=== PATIENT | male | born 1960 | race Caucasian/White ===

== ENCOUNTER 2018-12-18 23:57 | Emergency (ER) | payer SELFPAY ==
[~2018-12-18] VITALS: Ht 185.4 cm; Wt 108.2 kg
[2018-12-19] MEDS ORDERED: HYDR25TA PO (00:09)
[2018-12-19] MEDS ORDERED: LOSA50TA64 PO (00:09)
[2018-12-19] MEDS ORDERED: METF-960 PO (00:09)
[2018-12-19] MEDS ORDERED: GLIP5 PO (00:09)
[2018-12-19] MEDS ORDERED: ASPI81 PO (00:09)
[2018-12-19] MEDS ORDERED: DIPH25 PO (00:09)
[2018-12-19] MEDS ORDERED: INSULIN REGULAR, HUMAN 100 UNITS/ML IVP ONE (00:45)
[2018-12-19 01:14] LABS: GLUCOSE,POINT OF CARE 373 MG/DL (70-110)
[2018-12-19 01:21] LABS: BASOPHILS % (AUTO) 0.8 % (0.0-2.0); EOSINOPHILS % (AUTO) 5.4 % (1.0-6.0); HEMATOCRIT 44.8 % (41-53); LYMPHOCYTES # (AUTO) 1.7 K/uL (1.0-4.8); LYMPHOCYTES % (AUTO) 15.7 % (22.0-44.0); MEAN CORPUSCULAR HEMOGLOBIN 28.5 pg (26.0-34.0); MEAN CORPUSCULAR HGB CONC 33.5 G/dL (31.0-37.0); MEAN CORPUSCULAR VOLUME 85 fL (80-100); MONOCYTES # (AUTO) 0.7 K/uL (0.1-1.0); MONOCYTES % (AUTO) 6.7 % (2.0-9.0); NEUTROPHILS # (AUTO) 7.5 K/uL (1.8-7.7); NEUTROPHILS % (AUTO) 71.4 % (40.0-70.0); PLATELET COUNT (AUTO) 223 K/uL (150-450); RED BLOOD CELL COUNT(AUTO) 5.26 MIL/uL (4.50-5.90); RED CELL DISTRIBUTION WIDTH 13.4 % (11.5-14.5)
[2018-12-19 01:24] LABS: APPEARANCE,URINE CLEAR (CLEAR); BILIRUBIN,URINE NEGATIVE (NEGATIVE); GLUCOSE, URINE (UA) >=1000 mg/dL (NEGATIVE); KETONES,URINE NEGATIVE (NEGATIVE); LEUKOCYTE ESTERASE ,URINE NEGATIVE (NEGATIVE); NITRATE,URINE NEGATIVE (NEGATIVE); OCCULT BLOOD,URINE NEGATIVE (NEGATIVE); PH,URINE 5.5 (5.0-8.0); PROTEIN,URINE NEGATIVE (NEGATIVE)
[2018-12-19 01:29] LABS: INR 0.9 (0.9-1.1)
[2018-12-19 01:33] LABS: ANION GAP 8 mmol/L (8-16); CALCIUM, TOTAL 8.8 mg/dL (8.8-10.5); CARBON DIOXIDE 27 mmol/L (22-29); CHLORIDE 101 mmol/L (98-107); CREATININE 1.27 mg/dL (0.60-1.30); GLOMERULAR FILTR. RATE CALC 58 mL/min (>60); GLUCOSE,RANDOM 292 mg/dL (70-110); POTASSIUM 4.4 mmol/L (3.5-5.1); SODIUM SERUM 136 mmol/L (136-145); UREA NITROGEN, BLOOD 23 mg/dL (7-18)
[2018-12-19 01:36] LABS: ALANINE AMINOTRANSFERASE 32 U/L (12-78); ALBUMIN 3.4 g/dL (3.4-5.0); ALKALINE PHOSPHATASE 87 U/L (46-116); ASPARTATE AMINOTRANSFERASE 12 U/L (15-37); BILIRUBIN,TOTAL 0.3 mg/dL (0.1-1.0)
[2018-12-19 01:50] LABS: B-TYPE NATRIURETIC PEPTIDE < 5 pg/mL (0-100)
[2018-12-19 01:52] LABS: BACTERIA,URINE None Seen /HPF (None Seen); RBC,URINE None Seen /HPF (0-2); WBC,URINE None Seen /HPF (0-5)
[2018-12-19 02:20] LABS: GLUCOSE,POINT OF CARE 158 MG/DL (70-110)
[2018-12-19] MEDS ORDERED: ALBUTEROL SULFATE HFA 90 MCG/PUFF 8 GM INHALER IH ONE (04:30)
[2018-12-19] MEDS ORDERED: PERMETHRIN 5% 60 GM CREAM TP ONE (04:30)
[2018-12-19 05:07] VITALS: BP 137/76
== END 2018-12-19 05:15 | disposition home or self-care (01) ==
LOC: EMS 23:59
DX: R07.89 Other chest pain (principal); E11.65 Type 2 diabetes mellitus with hyperglycemia; J45.909 Unspecified asthma, uncomplicated; B86 Scabies; I10 Essential (primary) hypertension; Z79.82 Long term (current) use of aspirin; Z79.84 Long term (current) use of oral hypoglycemic drugs
CPT/HCPCS: 36415; 71045; 80053; 81001; 82962; 83880; 84484; 85025; 85610; 85730; 93005; 94640; 96374; 99285; J1815; J3535

== ENCOUNTER 2021-03-06 17:23 | Emergency (ER) | payer MEDICAID ==
[~2021-03-06] VITALS: Ht 185.4 cm; Wt 109.1 kg
[~2021-03-06 17:23] MED LIST: ASPI-1450 PO; DIPH25 PO; GLIP5 PO; HYDR25TA2 PO; LOSA50TA37 PO; METF-960 PO
[2021-03-06 21:08] VITALS: BP 128/74
== END 2021-03-06 21:35 | disposition home or self-care (01) ==
LOC: EMS 17:23
DX: L60.0 Ingrowing nail (principal); E11.9 Type 2 diabetes mellitus without complications; I10 Essential (primary) hypertension; Z90.49 Acquired absence of other specified parts of digestive tract; Z79.82 Long term (current) use of aspirin; Z79.84 Long term (current) use of oral hypoglycemic drugs; Z79.899 Other long term (current) drug therapy
CPT/HCPCS: 82962; 99283